=== PATIENT | male | born 1955 | race Caucasian/White ===

== ENCOUNTER 2017-07-14 10:15 | Observation (INO) | payer BC ==
[2017-07-14] MEDS ORDERED: Albuterol/Ipratropium NEB.SOL* Albuterol 2.5 MG/Ipratropium 0.5 MG 3 ML INH ONE (10:40)
[2017-07-14] MEDS ORDERED: methylPREDNISolone 125 MG* 2 ML VIAL IV ONE (10:41)
[2017-07-14] MEDS ORDERED: methylPREDNISolone 125 MG* 2 ML VIAL ONE (10:42)
[2017-07-14 11:39] LABS: ABS Basophils 0 10^3/ul (0-0.2); ABS Eosinophils 0 10^3/ul (0-0.6); ABS Lymphocytes 0.9 10^3/ul (1.0-4.8); ABS Monocytes 0.1 10^3/ul (0-0.8); ABS Neutrophils 4.1 10^3/ul (1.5-7.7); ABS Nucleated RBC 0 10^3/ul; Eosinophil % 0.1 % (0-6); Hematocrit 40 % (42-52); Hemoglobin 13.4 g/dl (14.0-18.0); Lymphocyte % 16.9 % (25-47); Mean Corpuscular HGB Conc 34 g/dl (31-36); Mean Corpuscular Hemoglobin 29 pg (27-31); Mean Corpuscular Volume 86 fL (80-94); Mean Platelet Volume 6.8 um3 (7.4-10.4); Nucleated Red Blood Cells % 0; Platelet Count 211 10^3/ul (150-450); Red Blood Count 4.65 10^6/ul (4.0-5.4); Red Cell Distribution Width 14 % (10.5-15)
[2017-07-14 12:01] LABS: EGFR Non-African American 77.1 (>60)
--- NOTE | 2017-07-14 13:12 | RAD ---
INDICATION: Shortness of breath. COMPARISON: There are no prior studies available for comparison. TECHNIQUE: Dual-energy PA and lateral views of the chest were obtained. FINDINGS: The heart is within normal limits in size. Mediastinal and hilar contours appear within normal limits. The lungs are clear. No pleural effusion is present. IMPRESSION: NO EVIDENCE FOR ACTIVE CARDIOPULMONARY DISEASE.
--- NOTE | 2017-07-14 15:34 | ED ---
Adithya Mckeon Stephanie, scribed for Aj Gonsalez MD on 07/14/17 at 1115 . Shortness of Breath - HPI Summary HPI Summary: The pt is a 61 y/o M presenting to the ED with c/o SOB that began 07/05/17. Symptoms include syncope with LOC, sleep disturbances and productive cough with yellow sputum. He pt has been taking symbicort and xolair injections. The pt has a recent diagnosis of bronchitis and has been treated with a z-pack and steroids. On 07/12/17, the pt received 2 breathing treatments from [facility] and increased steroid dosage. The pt received 2 breathing treatments this morning and received Flonase, symbicort and 20 mg of prednisone. - History of Current Complaint Chief Complaint: EDShortnessOfBreath Time Seen by Provider: 07/14/17 10:35 Hx Obtained From: Patient Onset/Duration: Gradual Onset, Lasting Days - 9, Still Present Timing: Constant Current Severity: Severe Dyspnea At: Rest Aggrevating Factors: Nothing Alleviating Factors: Nothing Associated Signs & Symptoms: Cough (Productive) - Allergy/Home Medications Allergies/Adverse Reactions: Allergies Allergy/AdvReac Type Severity Reaction Status Date / Time bee venom protein (honey bee) Allergy Anaphylatic Verified 07/14/17 10:27 Shock codeine Allergy Rash Verified 07/14/17 10:27 shellfish derived Allergy Anaphylatic Verified 07/14/17 10:27 Shock Home Medications: Home Medications Albuterol HFA INHALER* [Ventolin HFA Inhaler*] 2 puff INH Q4H PRN 07/14/17 [ History Confirmed 07/14/17] Budesonide/Formote 160/4.5(NF) [Symbicort 160/4.5 (NF)] 1 puff INH BID 07/14/17 [History Confirmed 07/14/17] Fexofenadine (NF) [Cynthia 180 (NF)] 180 mg PO DAILY 07/14/17 [History Confirmed 07/14/17] Fluticasone NASAL SPRAY 50MCG* [Flonase NASAL SPRAY 50MCG*] 2 spray BOTH NARES BID 07/14/17 [History Confirmed 07/14/17] Losartan TAB* [Cozaar TAB*] 25 mg PO DAILY 07/14/17 [History Confirmed 07/14/17] Pantoprazole TAB (NF) [Protonix TAB (NF)] 40 mg PO BID 07/14/17 [History Confirmed 07/14/17] Sildenafil (NF) [Viagra (NF)] 25 mg PO DAILY PRN 07/14/17 [History Confirmed 12/22] predniSONE TAB* [Deltasone TAB*] 60 mg PO DAILY 07/14/17 [History Confirmed 12/22] PMH/Surg Hx/FS Hx/Imm Hx Respiratory History: Reports: Hx Asthma Sensory History: Denies: Hx Legally Blind EENT History: Denies: Hx Deafness - Surgical History Surgery Procedure, Year, and Place: Larynx surgery Infectious Disease History: No Infectious Disease History: Denies: Traveled Outside the [place] in Last 30 Days - Family History Known Family History: Negative: Renal Disease - Social History Occupation: Works From/At Home Lives: With Family Alcohol Use: None Hx Substance Use: No Substance Use Type: Reports: None Hx Tobacco Use: No Smoking Status (MU): Never Smoked Tobacco Have You Smoked in the Last Year: No Review of Systems Positive: Other - sleep disturbances. Negative: Fever Positive: Shortness Of Breath, Cough - productive Positive: Syncope - LOC All Other Systems Reviewed And Are Negative: Yes Physical Exam - Summary Physical Exam Summary: Appearance: The patient is well-nourished in no acute distress and in no acute pain. Skin: The skin is warm and dry and skin color reflects adequate perfusion. HEENT: The head is normocephalic and atraumatic. The pupils are equal and reactive. The conjunctivae are clear and without drainage. Nares are patent and without drainage. Mouth reveals moist mucous membranes and the throat is without erythema and exudate. The external ears are intact. The ear canals are patent and without drainage. The tympanic membranes are intact. Neck: the neck is supple with full range of motion and non-tender. There are no carotid bruits. There is no neck vein distension. Respiratory: Chest is non-tender. Lungs are clear to auscultation and breath sounds are symmetrical and equal. The pt is tachypneic. Cardiovascular: Heart is tachycardic. There is no murmur or rub auscultated. There is no peripheral edema and pulses are symmetrical and equal. Abdomen: The abdomen is soft and non-tender. There are normal bowel sounds heard in all four quadrants and there is no organomegaly palpated. Musculoskeletal: There is no back tenderness noted. Extremities are non-tender with full range of motion. There is good capillary refill. There is no peripheral edema or calf tenderness elicited. Neurological: Patient is alert and oriented to person, place and time. The patient has symmetrical motor strength in all four extremities. Cranial nerves are grossly intact. Deep tendon reflexes are symmetrical and equal in all four extremities. Psychiatric: The patient has an appropriate affect and does not exhibit any anxiety or depression. Triage Information Reviewed: Yes Vital Signs On Initial Exam: Initial Vitals Temp Pulse Resp BP Pulse Ox 98.0 F 88 24 132/89 100 07/14/17 10:25 07/14/17 10:25 07/14/17 10:25 07/14/17 10:25 07/14/17 10:25 Vital Signs Reviewed: Yes Diagnostics - Vital Signs Vital Signs Temp Pulse Resp BP Pulse Ox 07/14/17 10:50 91 10 100 07/14/17 10:26 84 24 132/89 100 07/14/17 10:25 98.0 F 88 24 132/89 100 - Laboratory Lab Results: Lab Results 07/14/17 07/14/17 07/14/17 Range/Units 11:25 11:25 11:25 WBC 5.0 (3.5-10.8) 10^3/ul RBC 4.65 (4.0-5.4) 10^6/ul Hgb 13.4 L (14.0-18.0) g/dl Hct 40 L (42-52) % MCV 86 (80-94) fL MCH 29 (27-31) pg MCHC 34 (31-36) g/dl RDW 14 (10.5-15) % Plt Count 211 (150-450) 10^3/ul MPV 6.8 L (7.4-10.4) um3 Neut % (Auto) 80.9 (38-83) % Lymph % (Auto) 16.9 L (25-47) % [place] % (Auto) 1.9 (0-7) % Eos % (Auto) 0.1 (0-6) % Baso % (Auto) 0.2 (0-2) % Absolute Neuts (auto) 4.1 (1.5-7.7) 10^3/ul Absolute Lymphs (auto) 0.9 L (1.0-4.8) 10^3/ul Absolute Monos (auto) 0.1 (0-0.8) 10^3/ul Absolute Eos (auto) 0 (0-0.6) 10^3/ul Absolute Basos (auto) 0 (0-0.2) 10^3/ul Absolute Nucleated RBC 0 10^3/ul Nucleated RBC % 0 D-Dimer, Quantitative < 200 (Less Than 230) ng/mL Sodium 142 (139-145) mmol/L Potassium 3.3 L (3.5-5.0) mmol/L Chloride 108 (101-111) mmol/L Carbon Dioxide 23 (22-32) mmol/L Anion Gap 11 (2-11) mmol/L BUN 16 (6-24) mg/dL Creatinine 0.99 (0.67-1.17) mg/dL Est GFR ( Amer) 99.2 (>60) Est GFR (Non-Af Amer) 77.1 (>60) BUN/Creatinine Ratio 16.2 (8-20) Glucose 159 H (70-100) mg/dL Calcium 9.0 (8.6-10.3) mg/dL Total Bilirubin 0.50 (0.2-1.0) mg/dL AST 17 (13-39) U/L ALT 20 (7-52) U/L Alkaline Phosphatase 57 (34-104) U/L C-Reactive Protein < 1.00 (< 5.00) mg/L Total Protein 6.2 L (6.4-8.9) g/dL Albumin 4.1 (3.2-5.2) g/dL Globulin 2.1 (2-4) g/dL Albumin/Globulin Ratio 2.0 (1-3) Result Diagrams: 07/14/17 11:25 07/14/17 11:25 Lab Statement: Any lab studies that have been ordered have been reviewed, and results considered in the medical decision making process. - Radiology CXR Xray Interpretation: No Acute Changes Radiology Interpretation Completed By: Radiologist - NO EVIDENCE FOR ACTIVE CARDIOPULMONARY DISEASE. ED physician has reviewed this report. Re-Evaluation - Re-Evaluation First Eval Re-Evaluation Time: 14:41 Change: Unchanged - The pt states he does not feel any better at this time. Course/Dx - Course Course Of Treatment: Mr. Villanueva has had maximal medical therapy in the last couple of days and is still borderline in his respiratory status. I have asked the hospitalist service to admit him until the steroids have a chance to kick in. - Diagnoses Provider Diagnoses: Asthma exacerbation, Respiratory insufficiency - Physician Notifications Discussed Care of Patient With: Khoa Bruce Time Discussed With Above Provider: 15:12 Instructed by Provider To: Admit As Inpatient - Critical Care Time Critical Care Time: 30-74 min Discharge - Sign-Out/Discharge Documenting (check all that apply): Discharge/Admit/Transfer - Admit - Discharge Plan Condition: Stable Disposition: ADMITTED TO [facility] Referrals: Bill Hudson DO [Primary Care Provider] - - Billing Disposition and Condition Condition: STABLE [place]position: [facility] [place] The documentation as recorded by the Adithya hein Stephanie accurately reflects the service I personally performed and the decisions made by me, Aj Gonsalez MD.
[2017-07-14] MEDS ORDERED: Albuterol HFA INHALER* 8 gm MDI INH PRN (16:08)
--- NOTE | 2017-07-14 16:28 | ADMNOTE ---
Subjective Date of Service: 07/14/17 Interval History: ADMISSION HISTORY AND PHYSICAL EXAM: Allergies Allergy/AdvReac Type Severity Reaction Status Date / Time bee venom protein (honey bee) Allergy Anaphylatic Verified 07/14/17 10:27 Shock codeine Allergy Rash Verified 07/14/17 10:27 shellfish derived Allergy Anaphylatic Verified 07/14/17 10:27 Shock Home Medications Medication Instructions Recorded Confirmed Type Albuterol HFA INHALER* [Ventolin 2 puff INH Q4H PRN 07/14/17 07/14/17 History HFA Inhaler*] Budesonide/Formote 160/4.5(NF) 1 puff INH BID 07/14/17 07/14/17 History [Symbicort 160/4.5 (NF)] Fexofenadine (NF) [Cynthia 180 180 mg PO DAILY 07/14/17 07/14/17 History (NF)] Fluticasone NASAL SPRAY 50MCG* 2 spray BOTH NARES BID 07/14/17 07/14/17 History [Flonase NASAL SPRAY 50MCG*] Losartan TAB* [Cozaar TAB*] 25 mg PO DAILY 07/14/17 07/14/17 History Pantoprazole TAB (NF) [Protonix 40 mg PO BID 07/14/17 07/14/17 History TAB (NF)] Sildenafil (NF) [Viagra (NF)] 25 mg PO DAILY PRN 07/14/17 07/14/17 History predniSONE TAB* [Deltasone TAB*] 60 mg PO DAILY 07/14/17 07/14/17 History HPI: The patient was in his usual state of health until 9 days ago. He developed bronchitis and was given a 5-day course of azithro. He didn't get better. He continued to have dark sputum, now yellow with occ blood. 2 days ago he was started on prednisone 40 mg daily. Today he went to his painter helper spray's office and was given an extra 20 mg prednisone and a nebulizer treatment. The painter helper spray office called an amulance bring him to the ED. He has never been hospitalized or in an ER for asthma before. He has had asthma since 2006. He used his albuterol inhaler many times at home the past week. 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 Lives with his who is his SDM. Never smoked, no alcohol abuse. Past Medical History: Findings - Vocal cord sx, urethroplasty, lumbar sx x 2, jaw sx for benign tumor, appy, BL TKA, rhinoplasty Review of Systems - Measurements Intake and Output: Intake and Output Last 24 Hours 07/12/17 07/13/17 07/14/17 07/15/17 06:59 06:59 06:59 06:59 Weight 200 lb - Review of Systems Constitutional Symptoms: Positive: Weight Gain - deliberate weight loss but now stable Dermatology: Negative: Normal, Rash, Skin Lesions, Cancer, Skin Lumps, Other HEENT: Positive: Other - planned vocal cord surgery Eyes: Positive: Normal Thyroid: Positive: Normal Pulmonary: Positive: Cough, Asthma Cardiology: Positive: Normal Gastroenterology: Positive: Normal Genital - Urinary: Positive: Normal Musculoskeletal: Negative: Joint Pain, Joint Stiffness, Arthritis, Osteoporosis, Low Back Pain , Sciatica, Joint Deformities, Kyphoscoliosis, Other Endocrinology: Positive: Normal Hematologic/Lymphatic: Negative: Anemia, Easy Brusing, Hx Leukemia, Hx Lymphoma, Use of Anticoagulant, Use of Antiplatelet Drugs, Other Neurology: Positive: Normal Psychiatry: Negative: Normal, Depression, Anxiety, Depressed Mood, Adhedonia, Sexual Dysfunction, Weight Change, Guilt Feelings, Tearfulness, Unusual Fatigue, Unusual Anxiety, Suicidal Ideation, Hypomania, Eating Disorders, Other Objective Active Medications: Albuterol (Ventolin Hfa Inhaler*) 2 puff INH Q4H PRN PRN Reason: SOB/WHEEZING Cetirizine HCl (Zyrtec*) 10 mg PO DAILY [facility] Fluticasone Propionate (Flonase Nasal [place] 50mcg*) 2 spray BOTH NARES BID [facility] Losartan Potassium (Cozaar Tab*) 25 mg PO DAILY [facility] Omeprazole (Prilosec Cap*) 20 mg PO BID@0730,1630 [facility] Prednisone (Deltasone Tab*) 60 mg PO DAILY [facility] Vital Signs - 8 hr 07/14/17 07/14/17 07/14/17 10:25 10:26 10:50 Temperature 98.0 F Pulse Rate 88 84 91 Respiratory 24 24 10 Rate Blood Pressure 132/89 132/89 (mmHg) O2 Sat by Pulse 100 100 100 Oximetry 07/14/17 07/14/17 07/14/17 10:56 11:00 12:00 Temperature Pulse Rate 91 91 82 Respiratory 17 29 23 Rate Blood Pressure 131/84 (mmHg) O2 Sat by Pulse 100 100 97 Oximetry 07/14/17 07/14/17 07/14/17 12:27 12:56 13:00 Temperature Pulse Rate 91 88 90 Respiratory 31 27 24 Rate Blood Pressure 119/77 133/75 (mmHg) O2 Sat by Pulse 96 95 96 Oximetry 07/14/17 07/14/17 07/14/17 13:26 13:56 14:00 Temperature Pulse Rate 89 85 85 Respiratory 32 33 29 Rate Blood Pressure 132/78 153/99 (mmHg) O2 Sat by Pulse 95 96 96 Oximetry 07/14/17 07/14/17 07/14/17 14:26 14:56 15:00 Temperature Pulse Rate 90 Respiratory 23 15 35 Rate Blood Pressure 137/86 130/83 (mmHg) O2 Sat by Pulse 96 Oximetry 07/14/17 07/14/17 07/14/17 15:26 15:56 16:00 Temperature Pulse Rate 125 95 95 Respiratory 16 22 27 Rate Blood Pressure 135/117 126/93 (mmHg) O2 Sat by Pulse 97 97 97 Oximetry Oxygen Devices in Use Now: None, OxyMask Appearance: Alert, partly up on ED stretcher. In good spirits. Looks comfortable. Eyes: No Scleral Icterus Ears/Nose/Mouth/Throat: Clear Oropharnyx, Mucous Membranes Moist Neck: NL Appearance and Movements; NL JVP, No Thyroid Enlargement, Masses Respiratory: Symmetrical Chest Expansion and Respiratory Effort, Clear to Auscultation, Clear to Percussion - inspiration limited by very frequent coughing spell with deep inspiration Cardiovascular: NL Sounds; No Murmurs; No JVD, RRR, No Edema, - Abdominal: NL Sounds; No Tenderness; No Distention, No Hepatosplenomegaly, - Extremities: No Edema, No Clubbing, Cyanosis, - Skin: No Rash or Ulcers, No Nodules or Sclerosis, - Neurological: Alert and Oriented x 3, NL Sensation Result Diagrams: 07/14/17 11:25 07/14/17 11:25 Additional Lab and Data: Lab Results 07/14/17 07/14/17 07/14/17 Range/Units 11:25 11:25 11:25 WBC 5.0 (3.5-10.8) 10^3/ul RBC 4.65 (4.0-5.4) 10^6/ul Hgb 13.4 L (14.0-18.0) g/dl Hct 40 L (42-52) % MCV 86 (80-94) fL MCH 29 (27-31) pg MCHC 34 (31-36) g/dl RDW 14 (10.5-15) % Plt Count 211 (150-450) 10^3/ul MPV 6.8 L (7.4-10.4) um3 Neut % (Auto) 80.9 (38-83) % Lymph % (Auto) 16.9 L (25-47) % [place] % (Auto) 1.9 (0-7) % Eos % (Auto) 0.1 (0-6) % Baso % (Auto) 0.2 (0-2) % Absolute Neuts (auto) 4.1 (1.5-7.7) 10^3/ul Absolute Lymphs (auto) 0.9 L (1.0-4.8) 10^3/ul Absolute Monos (auto) 0.1 (0-0.8) 10^3/ul Absolute Eos (auto) 0 (0-0.6) 10^3/ul Absolute Basos (auto) 0 (0-0.2) 10^3/ul Absolute Nucleated RBC 0 10^3/ul Nucleated RBC % 0 D-Dimer, Quantitative < 200 (Less Than 230) ng/mL Sodium 142 (139-145) mmol/L Potassium 3.3 L (3.5-5.0) mmol/L Chloride 108 (101-111) mmol/L Carbon Dioxide 23 (22-32) mmol/L Anion Gap 11 (2-11) mmol/L BUN 16 (6-24) mg/dL Creatinine 0.99 (0.67-1.17) mg/dL Est GFR ( Amer) 99.2 (>60) Est GFR (Non-Af Amer) 77.1 (>60) BUN/Creatinine Ratio 16.2 (8-20) Glucose 159 H (70-100) mg/dL Calcium 9.0 (8.6-10.3) mg/dL Total Bilirubin 0.50 (0.2-1.0) mg/dL AST 17 (13-39) U/L ALT 20 (7-52) U/L Alkaline Phosphatase 57 (34-104) U/L C-Reactive Protein < 1.00 (< 5.00) mg/L Total Protein 6.2 L (6.4-8.9) g/dL Albumin 4.1 (3.2-5.2) g/dL Globulin 2.1 (2-4) g/dL Albumin/Globulin Ratio 2.0 (1-3) Assess/Plan/Problems-Billing Assessment: - Patient Problems (1) Asthma Current Visit: Yes Status: Acute Code(s): J45.909 - UNSPECIFIED ASTHMA, UNCOMPLICATED SNOMED Code(s): 317857425 Comment: Not currently wheezing. Prednisone 60 mg daily start 07/15, then taper. Substitute Dulera for Symbicort. (2) Bronchitis Current Visit: Yes Status: Acute Code(s): J40 - BRONCHITIS, NOT SPECIFIED ACUTE OR CHRONIC SNOMED Code(s): 85833079 Comment: Start doxycycline 100 mg bid, 2 doses 07/14. Dr. Valencia to consult.
[2017-07-14] MEDS ORDERED: DOXYcycline CAP(*) 100 MG ONE (16:37)
[2017-07-14] MEDS: DOXYcycline CAP(*) 100 MG PO SCH (16:39)
[2017-07-14] MEDS: Omeprazole CAP* 20 MG PO SCH (16:39)
[2017-07-14] MEDS ORDERED: Albuterol/Ipratropium NEB.SOL* Albuterol 2.5 MG/Ipratropium 0.5 MG 3 ML INH PRN (17:18)
[2017-07-14] MEDS: guaiFENesin ER TAB 600 MG PO SCH (20:29)
[2017-07-14] MEDS: Fluticasone NASAL SPRAY 50MCG* 16 gm SPRAY BTL BOTH NARES SCH (20:31)
[2017-07-14] MEDS: Mometasone/Formoter 200/5 MDI INH SCH (20:43)
[2017-07-15] MEDS: Omeprazole CAP* 20 MG PO SCH (07:19)
[2017-07-15] MEDS: Mometasone/Formoter 200/5 MDI INH SCH (07:52)
--- NOTE | 2017-07-15 07:52 | PN ---
Subjective Date of Service: 07/15/17 Interval History: Slept some. Persistent cough, scant sputum. No wheezing. No new c/o. 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 Lives with his who is his SDM. Never smoked, no alcohol abuse. Past Medical History: Findings - Vocal cord sx, urethroplasty, lumbar sx x 2, jaw sx for benign tumor, appy, BL TKA, rhinoplasty Objective Active Medications: Albuterol (Ventolin Hfa Inhaler*) 2 puff INH Q4H PRN PRN Reason: SOB/WHEEZING Albuterol/Ipratropium (Duoneb (Albuterol 2.5 Mg/Ipratropium 0.5 Mg)) 1 neb INH Q2H PRN PRN Reason: SOB/WHEEZING Cetirizine HCl (Zyrtec*) 10 mg PO DAILY [facility] Doxycycline Hyclate (Vibramycin Cap(*)) 100 mg PO 0900,2100 [facility] Last Admin: 07/14/17 16:39 Dose: 100 mg Fluticasone Propionate (Flonase Nasal [place] 50mcg*) 2 spray BOTH NARES BID [facility] Last Admin: 07/14/17 20:31 Dose: 2 spray Guaifenesin (Mucinex*) 1,200 mg PO BID [facility] Last Admin: 07/14/17 20:29 Dose: 1,200 mg Losartan Potassium (Cozaar Tab*) 25 mg PO DAILY [facility] Mometasone Furoate/Formoterol Fumar (Dulera 200/5 Mdi*) 2 puff INH BID [facility] Last Admin: 07/14/17 20:43 Dose: 2 puff Omeprazole (Prilosec Cap*) 20 mg PO BID@0730,1630 [facility] Last Admin: 07/15/17 07:19 Dose: 20 mg Prednisone (Deltasone Tab*) 60 mg PO DAILY [facility] Vital Signs - 8 hr 07/15/17 02:51 Temperature 97.8 F Pulse Rate 77 Respiratory 16 Rate Blood Pressure 133/72 (mmHg) O2 Sat by Pulse 97 Oximetry Oxygen Devices in Use Now: None Appearance: Alert, sitting up in bed. In good spirits. Occ mild cough, otherwise looks comfortable. Respiratory: Symmetrical Chest Expansion and Respiratory Effort, Clear to Auscultation, Clear to Percussion Extremities: No Edema, No Clubbing, Cyanosis, - Skin: No Rash or Ulcers, No Nodules or Sclerosis, - Neurological: Alert and Oriented x 3, NL Sensation Result Diagrams: 07/14/17 11:25 07/14/17 11:25 Additional Lab and Data: Lab Results 07/14/17 07/14/17 07/14/17 Range/Units 11:25 11:25 11:25 WBC 5.0 (3.5-10.8) 10^3/ul RBC 4.65 (4.0-5.4) 10^6/ul Hgb 13.4 L (14.0-18.0) g/dl Hct 40 L (42-52) % MCV 86 (80-94) fL MCH 29 (27-31) pg MCHC 34 (31-36) g/dl RDW 14 (10.5-15) % Plt Count 211 (150-450) 10^3/ul MPV 6.8 L (7.4-10.4) um3 Neut % (Auto) 80.9 (38-83) % Lymph % (Auto) 16.9 L (25-47) % [place] % (Auto) 1.9 (0-7) % Eos % (Auto) 0.1 (0-6) % Baso % (Auto) 0.2 (0-2) % Absolute Neuts (auto) 4.1 (1.5-7.7) 10^3/ul Absolute Lymphs (auto) 0.9 L (1.0-4.8) 10^3/ul Absolute Monos (auto) 0.1 (0-0.8) 10^3/ul Absolute Eos (auto) 0 (0-0.6) 10^3/ul Absolute Basos (auto) 0 (0-0.2) 10^3/ul Absolute Nucleated RBC 0 10^3/ul Nucleated RBC % 0 D-Dimer, Quantitative < 200 (Less Than 230) ng/mL Sodium 142 (139-145) mmol/L Potassium 3.3 L (3.5-5.0) mmol/L Chloride 108 (101-111) mmol/L Carbon Dioxide 23 (22-32) mmol/L Anion Gap 11 (2-11) mmol/L BUN 16 (6-24) mg/dL Creatinine 0.99 (0.67-1.17) mg/dL Est GFR ( Amer) 99.2 (>60) Est GFR (Non-Af Amer) 77.1 (>60) BUN/Creatinine Ratio 16.2 (8-20) Glucose 159 H (70-100) mg/dL Calcium 9.0 (8.6-10.3) mg/dL Total Bilirubin 0.50 (0.2-1.0) mg/dL AST 17 (13-39) U/L ALT 20 (7-52) U/L Alkaline Phosphatase 57 (34-104) U/L C-Reactive Protein < 1.00 (< 5.00) mg/L Total Protein 6.2 L (6.4-8.9) g/dL Albumin 4.1 (3.2-5.2) g/dL Globulin 2.1 (2-4) g/dL Albumin/Globulin Ratio 2.0 (1-3) Assess/Plan/Problems-Billing Assessment: - Patient Problems (1) Asthma Status: Acute Code(s): J45.909 - UNSPECIFIED ASTHMA, UNCOMPLICATED SNOMED Code(s): 477508041 Comment: Not currently wheezing. Prednisone 60 mg daily start 07/15, then finish his taper as previously rx'd. Note CRP < 1. ? finish doxycycline. (2) Bronchitis Status: Acute Code(s): J40 - BRONCHITIS, NOT SPECIFIED ACUTE OR CHRONIC SNOMED Code(s): 78125228 Comment: Start doxycycline 100 mg bid, 2 doses 07/14. Pt will get appt to see Dr. Martinez as outpt.
[2017-07-15] MEDS: DOXYcycline CAP(*) 100 MG PO SCH (08:32)
[2017-07-15] MEDS: guaiFENesin ER TAB 600 MG PO SCH (08:34)
[2017-07-15] MEDS: Fluticasone NASAL SPRAY 50MCG* 16 gm SPRAY BTL BOTH NARES SCH (08:35)
[2017-07-15] MEDS ORDERED: Potassium Chlor TAB* 10 MEQ TAB.ER PO ONE (09:00)
[2017-07-15] MEDS ORDERED: LoraTADine TAB(NF) 10 MG TAB (AUTOSUB to CETIRIZINE) PO SCH (09:00)
[2017-07-15] MEDS ORDERED: Losartan TAB* 25 MG PO SCH (09:00)
[2017-07-15] MEDS ORDERED: Cetirizine* 10 MG TAB PO SCH (09:00)
[2017-07-15] MEDS ORDERED: predniSONE TAB* 20 MG PO SCH (09:00)
[2017-07-15 11:47] VITALS: BP 128/77
--- NOTE | 2017-07-16 06:32 | DS ---
CC: Dr. Hudson; Dr. Martinez * DISCHARGE SUMMARY: DATE OF ADMISSION: 07/14/17 DATE OF DISCHARGE: 07/15/17 HOSPITAL COURSE: This 61-year-old man presented with a history of severe asthma and bronchitis with the history as detailed in my admission note. In summary, he has had asthma since 2017. He has never been in the emergency room or had been hospitalized for asthma before. About 9 days before admission, he developed bronchitis. He was given a 5-day course of azithromycin, which he took. He felt a little better but after a couple of days felt worse again. He was having dark sputum, now he is having yellow sputum. Two days before admission, he was started on prednisone 40 mg a day. He took his third dose the day of admission. He was feeling poorly and went to his compliance coordinator's office. They gave him an extra 20 mg of prednisone and had nebulizer treatment and called the ambulance. In the emergency room, he was coughing fairly frequently, but his oxygenation was good on room air. His lungs are actually quite clear. He was given Solu- Medrol 125 mg in the emergency room. He was given nebulizer treatments p.r.n. He was also given doxycycline in the emergency room and this will be continued. The day of discharge, he felt much better. I am not sure if he had bronchitis that did not respond to azithromycin or simply the residual inflammation is taking a long time to go away. I warned him that the cough may only slowly improve for a matter of a few weeks but should eventually resolve. He will finish a seven-day course of doxycycline at home. He will continue on the original tapering schedule of prednisone that the compliance coordinator had prescribed. An appointment is being made for him to see Dr. Martinez in consultation as well. FINAL DIAGNOSES: 1. Asthma and bronchitis. 2. Vocal cord scarring. DISCHARGE MEDICATIONS: 1. Doxycycline 100 mg b.i.d. for 6 more days. 2. Guaifenesin 1200 mg b.i.d. 3. Prednisone tapering as at home. 4. Pantoprazole 40 mg b.i.d. 5. Losartan 25 mg daily. 6. Fluticasone 2 sprays both nares b.i.d. 7. Fexofenadine 180 mg daily. 8. Budesonide/formoterol 160/4.5 one puff b.i.d. 9. Albuterol inhaler two puffs every 4 hours p.r.n. 10. Sildenafil 25 mg daily p.r.n. [id number] #: [id number] [facility]
== END 2017-07-15 11:55 | disposition home or self-care (01) ==
LOC: ED 10:15 → MED 16:06
PROVIDERS: ADMIT Internal Medicine; ATTEND Internal Medicine
DX: J45.902 Unspecified asthma with status asthmaticus (principal); J40 Bronchitis, not specified as acute or chronic; N28.9 Disorder of kidney and ureter, unspecified; R05 Cough; R55 Syncope and collapse; J45.909 Unspecified asthma, uncomplicated; J38.3 Other diseases of vocal cords
CPT/HCPCS: 36415; 71046; 80053; 83735; 85025; 85379; 86140; 94640; 96374; 99284; A9270-GY; J2930; J7512